=== PATIENT | female | born 2000 | race Caucasian/White ===

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

== ENCOUNTER 2019-01-12 12:04 | Emergency (ER) | payer MEDICAID ==
[~2019-01-12] VITALS: Ht 157.5 cm; Wt 7.3 kg
[2019-01-12 12:34] VITALS: BP 97/60
== END 2019-01-12 13:53 | disposition home or self-care (01) ==
LOC: ER 12:04
DX: H69.82 Other specified disorders of Eustachian tube, left ear (principal); J45.909 Unspecified asthma, uncomplicated; R05 Cough; J02.9 Acute pharyngitis, unspecified; R68.89 Other general symptoms and signs; Z91.018 Allergy to other foods; Z79.899 Other long term (current) drug therapy
CPT/HCPCS: 99281

== ENCOUNTER 2022-06-12 04:55 | Emergency (ER) | payer MEDICAID ==
[~2022-06-12] VITALS: Ht 162.6 cm; Wt 61.4 kg
[2022-06-12 05:09] VITALS: BP 109/70
[2022-06-12] MEDS ORDERED: KEN0.1O TP (06:27)
== END 2022-06-12 06:45 | disposition home or self-care (01) ==
LOC: ER 04:57
DX: L30.9 Dermatitis, unspecified (principal); J45.909 Unspecified asthma, uncomplicated; Z88.5 Allergy status to narcotic agent
CPT/HCPCS: 99283